=== PATIENT | male | born 1960 | race American Indian/Alaskan Native ===

== ENCOUNTER 2017-01-30 06:55 | Emergency (ER) | payer SELFPAY ==
[2017-01-30] MEDS ORDERED: MOTRIN PO ONE (09:03)
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
[2017-01-30 11:31] VITALS: BP 135/90
== END 2017-01-30 11:10 | disposition home or self-care (01) ==
LOC: ED 06:55
DX: S16.1XXA Strain of muscle, fascia and tendon at neck level, initial encounter (principal); M25.572 Pain in left ankle and joints of left foot; M54.5 Low back pain; M79.672 Pain in left foot; E11.9 Type 2 diabetes mellitus without complications; I10 Essential (primary) hypertension; J45.909 Unspecified asthma, uncomplicated; F17.200 Nicotine dependence, unspecified, uncomplicated; V49.49XA Driver injured in collision with other motor vehicles in traffic accident, initial encounter; Y93.89 Activity, other specified; Y99.8 Other external cause status; Y92.488 Other paved roadways as the place of occurrence of the external cause
CPT/HCPCS: 72100; 72125